=== PATIENT | female | born 1955 | race Two or more races ===

== ENCOUNTER 2023-11-05 09:22 | Inpatient (IN) | payer MEDICARE, OTHER ==
[~2023-11-05] VITALS: Ht 167.6 cm; Wt 85.7 kg
[2023-11-05] MEDS ORDERED: ASPIRIN 325 MG TABLET PO ONE (11:00)
[2023-11-05 11:19] LABS: BASOPHILS % (AUTO) 0.5 % (0.0-2.0); EOSINOPHILS # (AUTO) 0.1 K/uL (0.0-0.7); EOSINOPHILS % (AUTO) 1.4 % (0.0-6.0); HEMATOCRIT 44 % (33-45); HEMOGLOBIN 13.6 g/dL (11.5-14.8); LYMPHOCYTES # (AUTO) 1.2 K/uL (0.8-4.8); LYMPHOCYTES % (AUTO) 15.5 % (20.0-44.0); MEAN CORPUSCULAR HEMOGLOBIN 22 PG (26.0-33.0); MEAN CORPUSCULAR HGB CONC 31 g/dl (31.0-36.0); MEAN CORPUSCULAR VOLUME 70 fL (82-100); MONOCYTES # (AUTO) 0.8 K/uL (0.1-1.30); MONOCYTES % (AUTO) 9.8 % (2.0-12.0); NEUTROPHILS # (AUTO) 5.7 K/uL (1.8-8.9); NEUTROPHILS % (AUTO) 72.8 % (43.0-81.0); PLATELET COUNT (AUTO) 232 K/uL (150-450); WHITE BLOOD COUNT (AUTO) 7.8 K/uL (4.3-11.0)
[2023-11-05] MEDS ORDERED: ACETAMINOPHEN 325 MG TABLET ONE (11:21)
[2023-11-05] MEDS ORDERED: ASPIRIN 325 MG TABLET ONE (11:22)
[2023-11-05 11:30] LABS: CALCIUM, SERUM 10.8 mg/dL (8.5-10.1); CARBON DIOXIDE 24 mmol/L (21-32); CHLORIDE 98 mmol/L (98-107); CREATININE 1.1 mg/dL (0.6-1.3); GLUCOSE 69 mg/dL (74-106); POTASSIUM 3.6 mmol/L (3.5-5.1); SODIUM SERUM 134 mmol/L (136-145); UREA NITROGEN, BLOOD 17 mg/dL (7-18)
[2023-11-05] MEDS ORDERED: ONDANSETRON HCL/PF 4 MG/2 ML VIAL IVP PRN (11:30)
[2023-11-05] MEDS ORDERED: MAG HYDROX/AL HYDROX/SIMETH 30 ML UDC PO PRN (11:30)
[2023-11-05] MEDS ORDERED: MAGNESIUM HYDROXIDE 30 ML UDC PO PRN (11:30)
[2023-11-05] MEDS ORDERED: ACETAMINOPHEN 325 MG TABLET PO PRN (11:30)
[2023-11-05] MEDS ORDERED: NITROGLYCERIN 0.4 MG/TAB BOTTLE SL PRN (11:30)
[2023-11-05] MEDS ORDERED: Z GUARD REMEDY 4 OZ OINT TP PRN (11:30)
[2023-11-05] MEDS ORDERED: ZOLPIDEM TARTRATE 5 MG TABLET PO PRN (11:30)
[2023-11-05] MEDS ORDERED: HYDROCODONE/APAP 5/325MG TABLET PO PRN (11:30)
[2023-11-05] MEDS ORDERED: PANT40TA2 PO (11:37)
[2023-11-05] MEDS ORDERED: CLOP75TA15 PO (11:37)
[2023-11-05] MEDS ORDERED: ESCI5TAB PO (11:37)
[2023-11-05] MEDS ORDERED: LORA-259 PO (11:37)
[2023-11-05] MEDS ORDERED: METO25TA6 PO (11:37)
[2023-11-05] MEDS ORDERED: PREG50CA PO (11:37)
[2023-11-05] MEDS ORDERED: LOSA50TA39 PO (11:37)
[2023-11-05] MEDS ORDERED: DILT-32 PO (11:37)
[2023-11-05] MEDS ORDERED: NORT10CA PO (11:37)
[2023-11-05] MEDS ORDERED: SERT25TA PO (11:37)
[2023-11-05] MEDS ORDERED: LEVO150T8 PO (11:37)
[2023-11-05 11:43] LABS: ALANINE AMINOTRANSFERASE 13 U/L (12-78); ALBUMIN 3.6 g/dL (3.4-5.0); ALKALINE PHOSPHATASE 114 U/L (46-116); ASPARTATE AMINOTRANSFERASE 20 U/L (15-37); BILIRUBIN,DIRECT 0.1 mg/dL (0.0-0.2); BILIRUBIN,TOTAL 0.4 mg/dL (0.2-1.0); NT-PRO BNP 263 pg/mL (0-125); TOTAL PROTEIN, SERUM 8.2 g/dL (6.4-8.2)
[2023-11-05 15:24] VITALS: O2SAT 98
[2023-11-05 16:00] VITALS: BP 135/86; TEMP 97.7; O2SAT 99
[2023-11-05] MEDS: MORPHINE SULFATE INJ 2 MG/ML DISP.SYRIN IV PRN ×2 (17:01→20:44)
[2023-11-05] MEDS ORDERED: ENOXAPARIN SODIUM 80 MG/0.8 ML DISP.SYRIN SQ SCH (20:00)
[2023-11-05 20:31] VITALS: BP 133/86; TEMP 98.2; O2SAT 100
[2023-11-05] MEDS ORDERED: ENOXAPARIN SODIUM 40 MG/0.4 ML DISP.SYRIN SQ SCH (21:00)
[2023-11-06] MEDS: METOPROLOL TARTRATE 50 MG TABLET PO SCH ×4 (00:15→17:13)
[2023-11-06 00:31] VITALS: BP 116/80; TEMP 97.9; O2SAT 98
[2023-11-06 04:22] VITALS: BP 125/79; TEMP 98.1; O2SAT 96
[2023-11-06] MEDS: MORPHINE SULFATE INJ 2 MG/ML DISP.SYRIN IV PRN ×3 (06:03→16:15)
[2023-11-06 06:39] LABS: BASOPHILS # (AUTO) 0.1 K/uL (0.0-0.2); BASOPHILS % (AUTO) 1.5 % (0.0-2.0); EOSINOPHILS # (AUTO) 0.2 K/uL (0.0-0.7); EOSINOPHILS % (AUTO) 3.7 % (0.0-6.0); HEMATOCRIT 38 % (33-45); HEMOGLOBIN 11.6 g/dL (11.5-14.8); LYMPHOCYTES # (AUTO) 2.2 K/uL (0.8-4.8); MEAN CORPUSCULAR HEMOGLOBIN 22 PG (26.0-33.0); MEAN CORPUSCULAR HGB CONC 31 g/dl (31.0-36.0); MEAN CORPUSCULAR VOLUME 70 fL (82-100); MONOCYTES # (AUTO) 0.7 K/uL (0.1-1.30); MONOCYTES % (AUTO) 11.6 % (2.0-12.0); NEUTROPHILS # (AUTO) 2.7 K/uL (1.8-8.9); NEUTROPHILS % (AUTO) 46.2 % (43.0-81.0); PLATELET COUNT (AUTO) 227 K/uL (150-450); RED BLOOD CELL COUNT(AUTO) 5.37 MIL/uL (4.0-5.2); RED CELL DISTRIBUTION WIDTH 14.8 % (11.5-15.0); WHITE BLOOD COUNT (AUTO) 5.9 K/uL (4.3-11.0)
[2023-11-06 07:04] LABS: ALBUMIN 2.8 g/dL (3.4-5.0); BILIRUBIN,TOTAL 0.4 mg/dL (0.2-1.0); CALCIUM, SERUM 9.8 mg/dL (8.5-10.1); CREATININE 0.9 mg/dL (0.6-1.3); PHOSPHORUS 2.8 mg/dL (2.5-4.9); POTASSIUM 3.9 mmol/L (3.5-5.1); TOTAL PROTEIN, SERUM 6.5 g/dL (6.4-8.2)
[2023-11-06 07:30] VITALS: BP 123/80; TEMP 98.1; O2SAT 97
[2023-11-06] MEDS ORDERED: PANTOPRAZOLE 40 MG TABLET.DR PO SCH (07:30)
[2023-11-06] MEDS ORDERED: ENOXAPARIN SODIUM 80 MG/0.8 ML DISP.SYRIN SQ SCH (08:00)
[2023-11-06 08:13] LABS: EOSINOPHILS % (MANUAL) 2 % (0-4); LYMPHOCYTES % (MANUAL) 50 % (16-48); MONOCYTES % (MANUAL) 8 % (0-11.0); NEUTROPHILS % (MANUAL) 40 (42-76)
[2023-11-06 08:14] LABS: PLATELET ESTIMATE ADEQUATE
[2023-11-06] MEDS ORDERED: ASPIRIN EC 81 MG TABLET.DR PO SCH (09:00)
[2023-11-06] MEDS ORDERED: ATORVASTATIN 10 MG TABLET PO SCH (09:00)
[2023-11-06] MEDS ORDERED: OLAN10TA3 PO (09:26)
[2023-11-06] MEDS ORDERED: OXYC5TAB3 PO (09:26)
[2023-11-06] MEDS ORDERED: ALBU8.5H8 IH (09:26)
[2023-11-06] MEDS ORDERED: ASPI-1169 PO (09:26)
[2023-11-06] MEDS ORDERED: ONDA4TAB5 PO (09:26)
[2023-11-06 09:34] LABS: CHOLESTEROL 155 mg/dL (<200); HDL CHOLESTEROL 49 mg/dL (40-60); LDL 84 mg/dL (0-99); TRIGLYCERIDES 108 mg/dL (30-150)
[2023-11-06] MEDS ORDERED: IV NS 0.9% 250 ML IV ONE (10:16)
[2023-11-06] MEDS ORDERED: CT SWABBABLE VALVE TRANS SET 1 EA INFUS.SET MC ONE (10:16)
[2023-11-06] MEDS ORDERED: METOPROLOL TARTRATE INJ 5 MG/5 ML AMPUL ONE ×2 (10:16→10:29)
[2023-11-06] MEDS ORDERED: NITROGLYCERIN 0.4 MG/TAB BOTTLE ONE (10:16)
[2023-11-06] MEDS ORDERED: IOHEXOL-350 100 ML VIAL IV ONE (10:16)
[2023-11-06] MEDS: METOPROLOL TARTRATE INJ 5 MG/5 ML AMPUL IVP PRN ×3 (10:20→10:30)
[2023-11-06] MEDS ORDERED: NITROGLYCERIN 0.4 MG/TAB BOTTLE SL ONE (10:30)
[2023-11-06 12:30] VITALS: BP 119/69; TEMP 98.1; O2SAT 99
[2023-11-06 16:00] VITALS: BP 133/98; TEMP 98.2; O2SAT 95
[2023-11-06 17:13] VITALS: BP 133/98
== END 2023-11-06 18:33 | disposition home or self-care (01) | DRG 282 ==
LOC: ER 10:55 → TRANSITION 14:00 → TELE 15:10
DX: I21.4 Non-ST elevation (NSTEMI) myocardial infarction (principal); J44.9 Chronic obstructive pulmonary disease, unspecified; E78.5 Hyperlipidemia, unspecified; I10 Essential (primary) hypertension; Z88.0 Allergy status to penicillin; Z79.02 Long term (current) use of antithrombotics/antiplatelets; Z79.890 Hormone replacement therapy; Z79.899 Other long term (current) drug therapy; F32.A Depression, unspecified; E03.9 Hypothyroidism, unspecified; Z98.61 Coronary angioplasty status; R71.8 Other abnormality of red blood cells; E83.52 Hypercalcemia; I49.5 Sick sinus syndrome; Z79.82 Long term (current) use of aspirin; Z79.51 Long term (current) use of inhaled steroids; I25.10 Atherosclerotic heart disease of native coronary artery without angina pectoris
CPT/HCPCS: 36415; 71045-TC; 75574; 80048-TC; 80053-TC; 80061-TC; 80076-TC; 83735-TC; 83880; 84100-TC; 84484-TC; 85025-TC; 93307-TC; G0378; J1650; J2270; J3490; J7050; Q9967